=== PATIENT | female | born 1955 | race Caucasian/White ===

== ENCOUNTER 2018-10-07 06:45 | Day surgery (SDC) | payer BC ==
[~2018-10-07] VITALS: Ht 162.6 cm; Wt 45.4 kg
[~2018-10-07 06:45] MED LIST: ACTONEL150 MG PO; ALLERGY NA50 MCG/ACT; BERBERINE PO; CALTRATE 600 PO; CYANOCOBALAM IM; IRON PO; JANUVIA100 MG PO; LEVOTHYROXIN125 MC1 PO; METFORMIN500 MG PO; RISEDRONATE SO150 MG PO; SYNTHROID137 MCG PO; SYNTHROID150 MCG PO; TRULICITY1.5 MG/0.5 SC; VITAMIN C500 MG PO; WOMENS MULTI PO; ZOCOR20 MG PO; [UNRECOGNIZED DRUG - OTHER] PO
[2018-10-07 08:32] VITALS: BP 102/60
== END 2018-10-07 08:13 | disposition home or self-care (01) | DRG 951 ==
LOC: ENDO 06:45
PROVIDERS: ATTEND Surgery
PROC: 0DJD8ZZ Inspection of Lower Intestinal Tract, Via Natural or Artificial Opening Endoscopic (ICD-10-PCS; principal; 2018-10-07)
DX: Z12.11 Encounter for screening for malignant neoplasm of colon (principal); E11.9 Type 2 diabetes mellitus without complications; Z80.0 Family history of malignant neoplasm of digestive organs